=== PATIENT | female | born 1990 | race Caucasian/White ===

== ENCOUNTER 2021-03-01 19:17 | Emergency (ER) | payer BC, SELFPAY ==
[2021-03-01 19:19] VITALS: BP 148/80; PULSE 110; RESP 14; TEMP 36.3; O2SAT 100
--- NOTE | 2021-03-01 19:43 | ED.GENADULT ---
HPI - General Adult General Chief complaint: Skin/Abscess/Foreign Body Stated complaint: sore on belly for 5 months Time Seen by Provider: 03/01/21 19:34 Source: patient Mode of arrival: ambulatory Limitations: no limitations History of Present Illness HPI narrative: Patient is a 30-year-old female who presents with wound and her pannus in the fold midline been there for roughly a month having trouble getting the lesion to heal patient is attempted cleaning and trying to keep the area dry but due to moisture has trouble getting the wound to heal. Patient notes she has had other abscesses in the past. Patient currently does not have a primary care doctor. Patient denies any fever chills nausea vomiting. On arrival patient in the room in no distress Related Data Allergies Allergy/AdvReac Type Severity Reaction Status Date / Time shellfish derived Allergy Unknown Rash Verified 03/01/21 19:31 Review of Systems Review of Systems: All systems reviewed & are unremarkable except as noted in HPI and below PMFSH Past Medical History Medical History (Updated 03/01/21 @ 19:50 by Remi Stephens PA-C) Obese Family History Family History (Updated 02/27/16 @ 09:58 by DOCTOR UNKNOWN) Father Hypertension Mother Family history of kidney disease Other Family history of cardiovascular disease Family history of malignant neoplasm Social History Social History Smoking status: Current every day smoker Alcohol intake: current Exam Narrative: Exam Narrative: GENERAL: Well-appearing, obese, and in no acute distress. HEAD: Normocephalic, atraumatic. EYES: PERRLA and EOMI. ENT: Nares clear, no rhinorrhea or epistaxis. Mucous membranes moist. CHEST: Clear to auscultation. No respiratory distress. No wheezes rales or rhonchi HEART: Regular rate and rhythm. No murmur heard. ABDOMEN: Soft, nontender, nondistended EXTREMITIES: Normal range of motion. No edema. SKIN: Warm, dry, no rash. Small superficial half centimeter lesion in the fold of the pannus with slight erythema. No drainage no fluctuance NEURO: No focal deficits. Alert and oriented x3. PSYCH: Normal mood and affect. Course Course Emergency Course: Patient in the room in no distress aware of case findings treatment plan and diagnosis provided with primary care referral for reevaluation and wound care management referral if possible or necessary Vital Signs Vital signs: Vital Signs Temperature 97.3 F L 03/01/21 19:19 Pulse Rate 110 H 03/01/21 19:19 Respiratory Rate 14 03/01/21 19:19 Blood Pressure 148/80 H 03/01/21 19:19 Pulse Oximetry 100 03/01/21 19:19 Temperature 97.3 F L 03/01/21 19:19 Pulse Rate 110 H 03/01/21 19:19 Respiratory Rate 14 03/01/21 19:19 Blood Pressure 148/80 H 03/01/21 19:19 Pulse Oximetry 100 03/01/21 19:19 Medical Decision Making MDM Narrative Medical decision making narrative: Patient presented with infection in the lower abdomen felt appropriate for outpatient treatment will be placed on antibiotics and given mupirocin and Hibiclens as well. ABCs and vital signs intact and stable. Patient in no distress Vital Signs Vital Signs: Vital Signs Temperature 97.3 F L 03/01/21 19:19 Pulse Rate 110 H 03/01/21 19:19 Respiratory Rate 14 03/01/21 19:19 Blood Pressure 148/80 H 03/01/21 19:19 Pulse Oximetry 100 03/01/21 19:19 Temperature 97.3 F L 03/01/21 19:19 Pulse Rate 110 H 03/01/21 19:19 Respiratory Rate 14 03/01/21 19:19 Blood Pressure 148/80 H 03/01/21 19:19 Pulse Oximetry 100 03/01/21 19:19 Discharge Plan Discharge Clinical Impression: Cellulitis Patient Disposition: Home, Self-Care Condition: Stable Instructions: Antibiotic Form, Cellulitis (ED) Additional Instructions: Follow up with primary care in the next 2-3 days for re-evaluation return if symptoms worsen or concerns, any increase
== END 2021-03-01 20:49 | disposition home or self-care (01) ==
PROVIDERS: Emergency Provider Emergency Medicine
DX: L03.311 Cellulitis of abdominal wall (principal); E66.9 Obesity, unspecified; Z68.41 Body mass index [BMI] 40.0-44.9, adult; F17.200 Nicotine dependence, unspecified, uncomplicated
CPT/HCPCS: 99283